=== PATIENT | male | born 1965 | race American Indian/Alaskan Native ===

== ENCOUNTER 2017-01-07 13:02 | Inpatient (IN) | payer MEDICAID ==
[2017-01-07 14:02] LABS: BASO % 0.8 % (0.0-2.0); EOS # 0.1 K/uL (0.0-0.7); HEMATOCRIT 37.1 % (35.0-51.0); LYMPH # 1.3 K/uL (1.0-4.3); LYMPH % 30.3 % (20.0-40.0); MEAN CORPUSCULAR HEMOGLOBIN 26.1 pg (27.0-31.0); MEAN CORPUSCULAR HGB CONC 33.5 g/dL (33.0-37.0); MONO # 0.6 K/uL (0.0-0.8); MONO % 13.3 % (0.0-10.0); NRBC % 0.1 % (0.0-2.0); WHITE BLOOD COUNT 4.4 K/uL (4.8-10.8)
[2017-01-07 14:07] LABS: CHLORIDE 95 mmol/L (98-107); POTASSIUM 3.2 mmol/L (3.6-5.2); SODIUM 136 mmol/L (132-148)
[2017-01-07 14:09] LABS: ALB/GLOB RATIO 1.7 (1.0-2.1); ALKALINE PHOSPHATASE 69 U/L (38-126); AST/SGOT 226 U/L (17-59); BILIRUBIN,TOTAL 0.8 mg/dL (0.2-1.3); CARBON DIOXIDE 28 mmol/L (22-30); GFR AFRICAN-AMERICAN > 60; TOTAL PROTEIN 7.7 g/dL (6.3-8.3)
[2017-01-07 14:10] LABS: ALCOHOL SERUM < 10 mg/dl (0-10); ALT/SGPT 135 U/L (21-72); BLOOD UREA NITROGEN 31 mg/dL (9-20); GLUCOSE,RANDOM 88 mg/dL (75-110)
[2017-01-07 15:23] LABS: RBC URINE < 1 /hpf (0-3); URINE BILIRUBIN NEGATIVE (NEGATIVE); URINE BLOOD NEGATIVE (NEGATIVE); URINE COLOR Amber (YELLOW); URINE GLUCOSE (UA) NORMAL (Normal); URINE KETONE 1+ mg/dL (NEGATIVE); URINE LEUKOCYTE ESTERASE NEG Leu/uL (Negative); URINE PROTEIN 1+ mg/dL (NEGATIVE); WBC URINE 1 /hpf (0-5)
--- NOTE | 2017-01-07 16:25 | C.PDOC ---
History Of Present Illness 51 year old male was brought to the ED by EMS with complaints of hearing voices and suicidal ideation but denies having a plan. Patient notes an extensive psychiatric history and unknown medical compliance. He denies any homicidal ideations or other complaints at this time. Time Seen by Provider: 01/07/17 13:24 Chief Complaint (Nursing): Psychiatric Evaluation History Per: Patient History/Exam Limitations: no limitations Suicide/Self Injury Attempted (Context): None Associated Symptoms: Suicidal Thoughts, Other (hearing voices ). denies: Suicidal Plan Additional History Per: EMS Past Medical History Reviewed: Historical Data, Nursing Documentation, Vital Signs Vital Signs: Last Vital Signs Temp 98.1 F 01/07/17 17:00 Pulse 67 01/07/17 17:00 Resp 18 01/07/17 17:00 BP 117/75 01/07/17 17:00 Pulse Ox 99 01/07/17 17:00 - Medical History PMH: Bipolar Disorder, CAD, CVA, Hepatitis, HTN, Schizophrenia Family History: States: No Known Family Hx - Social History Hx Tobacco Use: Yes Hx Alcohol Use: Yes Hx Substance Use: Yes (heroin 3 days ago, cocaine months ago) - Immunization History Hx Tetanus Toxoid Vaccination: No Hx Influenza Vaccination: Yes Hx Pneumococcal Vaccination: No Review Of Systems Constitutional: Negative for: Fever, Chills, Sweats Cardiovascular: Negative for: Chest Pain, Palpitations Respiratory: Negative for: Cough, Shortness of Breath Gastrointestinal: Negative for: Nausea, Vomiting, Abdominal Pain, Diarrhea Physical Exam - Physical Exam Appears: Non-toxic, No Acute Distress Skin: Warm, Dry, Other (large scar running down left side of face ) Head: Atraumatic Oral Mucosa: Moist Neck: Normal ROM, Supple Chest: Symmetrical, No Deformity Cardiovascular: Rhythm Regular Respiratory: No Rales, No Rhonchi, No Stridor, No Wheezing Gastrointestinal/Abdominal: Soft, No Tenderness, No Distention, No Guarding, No Rebound Extremity: Normal ROM, No Tenderness Neurological/Psych: Oriented x3, Other (flat affect and calm ) ED Course And Treatment - Laboratory Results Result Diagrams: 01/07/17 13:53 01/07/17 13:53 Lab Interpretation: Abnormal (tox + benzo and cocaine) O2 Sat by Pulse Oximetry: 99 Pulse Ox Interpretation: Normal Reevaluation Time: 17:27 Reassessment Condition: Improved - Physician Consult Information Outcome Of Conversation: 1730; d/w Crisis- ok to Psych Disposition Doctor Will See Patient In The: Hospital Counseled Patient/Family Regarding: Studies Performed, Diagnosis - Disposition Disposition: HOSPITALIZED Disposition Time: 17:27 Condition: GOOD - Clinical Impression Clinical Impression: Schizophrenia - Scribe Statement The provider has reviewed the documentation as recorded by the Scribhayder Ashraf All medical record entries made by the Genaibhayder were at my direction and personally dictated by me. I have reviewed the chart and agree that the record accurately reflects my personal performance of the history, physical exam, medical decision making, and the department course for this patient. I have also personally directed, reviewed, and agree with the discharge instructions and disposition.
[2017-01-07] MEDS ORDERED: Potassium Chloride 20 mEq ER Tab PO ONE ×2 (16:51→16:56)
[2017-01-07] MEDS ORDERED: Aluminum Hydroxide/Magnesium Hydroxide Susp (30 mL) PO PRN (19:03)
[2017-01-08 08:14] LABS: CHLORIDE 99 mmol/L (98-107); SODIUM 137 mmol/L (132-148)
[2017-01-08 08:15] LABS: POTASSIUM 3.6 mmol/L (3.6-5.2)
[2017-01-08 08:16] LABS: CHOLESTEROL 147 mg/dL (0-199); GFR AFRICAN-AMERICAN > 60
[2017-01-08 08:17] LABS: ALB/GLOB RATIO 1.3 (1.0-2.1); ALKALINE PHOSPHATASE 59 U/L (38-126); ALT/SGPT 105 U/L (21-72); AST/SGOT 139 U/L (17-59); BILIRUBIN,TOTAL 0.6 mg/dL (0.2-1.3); CALCIUM 8.5 mg/dl (8.6-10.4); CARBON DIOXIDE 29 mmol/L (22-30); GLUCOSE,RANDOM 91 mg/dL (75-110)
[2017-01-08 08:18] LABS: MAGNESIUM 2.3 mg/dL (1.6-2.3); THYROID STIMULATING HORMONE 4.95 mIU/L (0.46-4.68)
[2017-01-08 08:32] LABS: BLOOD UREA NITROGEN 26 mg/dL (9-20)
--- NOTE | 2017-01-08 09:58 | PCM.PSYCH ---
Initial Psychiatric Evaluation - Initial Psychiatric Evaluation Type of Admission: Voluntary Legal Status: Capacity Chief Complaint (in patient's own words): "I had suicidal and homicidal ideation" History of Present Illness and Precipitating Events: Pt is a 51 year old single male. He has one child age 30. He stays with a friend or at a halfway. Patient is on SSI for a long time due to mental illness.Patient was brought to the hospital by EMS. He was visiting his mother's grave in and felt like he wanted to "shoot himself." He also says he was having homicidal ideation and wanted to kill his sister for not taking care of him. Patient has had multiple suicide attempts in the past. He said he tried to jump in front of a train but the train stopped. He also tried to overdose but was brought to hospital. Patient says he has a history of schizoaffective disorder and bipolar. Pt reports he takes risperdone. Patient was most recently at [facility] but not following with a psychiatrist. Patient says he recently relapsed and is smoking $100 of cocaine a day. He also injects about 7 bags of heroin a day but his last use was a few weeks ago. He has been using heroin and cocaine since he was 24 years old. Patient says he has been to detox 4x and last time seven months ago. He has been on Suboxone maintenance therapy in the past as well. He has never been to rehab. Patient takes three Klonopin pills a day (did not know doses) that he gets from the street. He drinks occasionally and smokes 1/2 pack a day. Denies marijuana or other drug use. Patient appears a bit disorganized and internally preoccupied throughout the interview. He reports of hearing voices. He said he heard his mother talking to him. He appears paranoid and delusional but denies any visual hallucinations. Patient complaining that he did not sleep last night due to pain in his foot. Allergies: Haldol (tardive dyskinesia) PMH: 3 CVAs (residual left sided weakness), Hep C, HTN PsychHx: depression, schizoaffective disorder, bipolar FamPsychHx: denies Current Medications: Active Medications Generic Name Dose Route Start Last Admin Trade Name Freq PRN Reason Stop Dose Admin Al Hydrox/Mg Hydrox/Simethicone 30 ml 01/07/17 19:03 Maalox 30 Ml PO TID PRN Indigestion / Heartburn Aripiprazole 5 mg 01/07/17 22:00 01/07/17 21:31 Abilify PO 5 mg HS [facility] Administration Aspirin 81 mg 01/08/17 10:00 Aspirin Chewable PO DAILY [facility] Clonidine HCl 0.1 mg 01/07/17 18:40 Catapres PO Q8 PRN COWS Score More or Equal to 5 Gabapentin 300 mg 01/07/17 19:15 Neurontin PO BID [facility] Hydroxyzine HCl 50 mg 01/07/17 18:30 Atarax PO Q6H PRN Anxiety Ibuprofen 600 mg 01/07/17 18:30 01/07/17 21:31 Motrin Tab PO 600 mg Q6H PRN Administration Pain, moderate (4-7) Lisinopril 10 mg 01/08/17 10:00 Zestril PO DAILY [facility] Loperamide HCl 2 mg 01/07/17 18:40 Imodium PO Q8 PRN Diarrhea Ondansetron HCl 4 mg 01/07/17 19:04 Zofran Tab PO Q8 PRN Nausea/Vomiting Sertraline HCl 50 mg 01/08/17 10:00 Zoloft PO DAILY [facility] Trazodone HCl 100 mg 01/07/17 22:00 Desyrel PO HS PRN Insomnia Past Psychiatric History - Past Psychiatric History Previous Treatment History: Inpatient Pertinent Medical Hx (Current Medical&Sleep Prob, Allergies): Allergies Allergy/AdvReac Type Severity Reaction Status Date / Time haloperidol Allergy Verified 01/07/17 13:13 Aspirin 81 mg PO DAILY 06/13/13 Risperdal 156 mg IM MO 06/13/13 Lisinopril 01/07/17 Review of Systems - Review of Systems All systems: reviewed and no additional remarkable complaints except - Psychiatric Psychiatric: Anxiety, Auditory Hallucinations, Irritability, Mood Swings, Suicidal Ideation Mental Status Examination - Personal Presentation Personal Presentation: Looks older than stated age - Affect Affect: Constricted - Motor Activity Motor Activity: Psychomotor Retardation - Reliability in Providing Information Reliability in Providing Information: Poor, due to alteration in thoughts, Poor , due to altered mood - Speech Speech: Disorganized - Mood Mood: Depressed, Anxious - Formal Thought Process Formal Thought Process: Hallucinations, Delusions, Paranoia, Loosening of associations - Hallucinations/Delusions Hallucinations: Auditory Delusions: Persecution - Obsessions/Compulsions Obsessions: No Compulsions: No - Cognitive Functions Orientation: Person, Place, Situation, Time Sensorium: Alert Attention/Concentration: Attentive Abstract Thinking: Belcher Estimate of Intelligence: Below average Judgement: Imparied, as evidence by: Poor judgement, Imparied, as evidence by: Lack of insight into illness - Risk Risk: Suicidal, Diminished functioning - Strength & Assets Inventory Strength & Assets Inventory: Cooperative - Limitations Limitations: Living alone DSM 5 DX - DSM 5 DSM 5 Diagnosis: Schizoaffective disorder bipolar type Cocaine use disorder severe Sedative/hypnotic use disorder severe Sedative/hypnotic withdrawal Opiate use disorder severe in remission - Recommended/Plan of Treatment Treatment Recommendations and Plan of Treatment: Schizoaffective disorder bipolar type CBT Psychoeducation Supportive therapy, group therapy, individual therapy Zoloft 50 mg g by mouth daily Neurontin 300 mg by mouth 2 times a day Abilify 5 mg by mouth daily at bedtime Trazodone 100 mg by mouth daily at bedtime Sedative/hypnotic use disorder severe CBT Psychoeducation Supportive therapy, individual therapy Use [place] for abstinence Sedative/hypnotic withdrawal uncomplicated CBT Psychoeducation Supportive therapy, individual therapy Ativan 2 mg every 8 hrs when necessary Cocaine use disorder severe CBT Psychoeducation Supportive therapy, individual therapy Use [place] for abstinence Opioid use disorder in remission CBT Psychoeducation Supportive therapy, individual therapy Use [place] for abstinence HTN Continue prescribed medications (Lisinopril) Monitor signs symptoms H/O Stroke Continue prescribed medications (Miquel) Monitor signs symptoms - Smoking Cessation Smoking Cessation Initiated: No
--- NOTE | 2017-01-09 09:48 | CP.PCM.CON ---
Past Patient History - Infectious Disease Hx of Infectious Diseases: None - Past Social History Smoking Status: Light Smoker < 10 Cigarettes Daily - CARDIAC Hx Heart Attack: Yes (1984) Hx Hypertension: Yes - PULMONARY Hx Tuberculosis: Yes - NEUROLOGICAL Hx Seizures: No Other/Comment: hx of 3 strokes - R side weakness - HEMATOLOGICAL/ONCOLOGICAL Hx Hepatitis C: Yes Hx Human Immunodeficiency Virus (HIV): No - GENITOURINARY/GYNECOLOGICAL Hx Sexually Transmitted Disorders: No - PSYCHIATRIC Hx Schizophrenia: Yes (risperdone injection) Hx Substance Use: Yes (cocaine/benzos) - SURGICAL HISTORY Other/Comment: hematoma right kidney 2000 - ANESTHESIA Hx Anesthesia: Yes Hx Anesthesia Reactions: No Meds Allergies/Adverse Reactions: Allergies Allergy/AdvReac Type Severity Reaction Status Date / Time haloperidol Allergy Verified 01/07/17 13:13 - Medications Medications: Current Medications Al Hydrox/Mg Hydrox/Simethicone (Maalox 30 Ml) 30 ml PO TID PRN PRN Reason: Indigestion / Heartburn Aripiprazole (Abilify) 5 mg PO HS [facility] Last Admin: 01/08/17 21:19 Dose: 5 mg Aspirin (Aspirin Chewable) 81 mg PO DAILY [facility] Last Admin: 01/08/17 10:18 Dose: 81 mg Clonidine HCl (Catapres) 0.1 mg PO Q8 PRN PRN Reason: COWS Score More or Equal to 5 Gabapentin (Neurontin) 300 mg PO BID [facility] Last Admin: 01/08/17 18:00 Dose: 300 mg Hydroxyzine HCl (Atarax) 50 mg PO Q6H PRN PRN Reason: Anxiety Ibuprofen (Motrin Tab) 600 mg PO Q6H PRN PRN Reason: Pain, moderate (4-7) Last Admin: 01/07/17 21:31 Dose: 600 mg Lisinopril (Zestril) 10 mg PO DAILY [facility] Last Admin: 01/08/17 10:17 Dose: 10 mg Loperamide HCl (Imodium) 2 mg PO Q8 PRN PRN Reason: Diarrhea Ondansetron HCl (Zofran Tab) 4 mg PO Q8 PRN PRN Reason: Nausea/Vomiting Sertraline HCl (Zoloft) 50 mg PO DAILY [facility] Last Admin: 01/08/17 10:18 Dose: 50 mg Trazodone HCl (Desyrel) 100 mg PO HS PRN PRN Reason: Insomnia Results - Vital Signs Recent Vital Signs: Last Vital Signs Temp 98.3 F 01/09/17 07:47 Pulse 50 L 01/09/17 07:47 Resp 16 01/09/17 07:47 BP 131/80 01/09/17 07:47 Pulse Ox 99 01/07/17 17:27 - Labs Result Diagrams: 01/07/17 13:53 01/08/17 07:29
--- NOTE | 2017-01-09 10:40 | PCM.PYCHPN ---
Psychiatric Progress Note - Psychiatric Progress Note Patient seen today, length of contact: 17 min Patient Chief Complaint: "I had suicidal and homicidal ideation" Problems Identified/Issues Discussed: Patient seen and evaluated, chart reviewed and discussed with the nurse. Patient remained disorganized and internally preoccupied. Patient remained isolated, confined and withdrawn. He still reports of hearing voices. Patient still appears paranoid and delusional. He reports depressed mood and feelings of hopelessness and helplessness. He reports withdrawal symptoms including cramps, headaches and anxiety. But remained isolated and withdrawn, denies any suicidal ideation or homicidal ideation. Supportive therapy and psychoeducation were given. Medication Change: Yes (Ativan when necessary) Medical Record Reviewed: Yes Mental Status Examination - Cognitive Function Orientation: Person, Place, Situation, Time Memory: Intact Attention: WNL Concentration: Poor Association: WNL Fund of Knowledge: Poor - Mood Mood: Depressed, Anxious - Affect Affect: Constricted - Speech Speech: Soft - Formal Thought Process Formal Thought Process: Hallucinations, Delusions, Paranoia, Loosening of associations - Suicidal Ideation Suicidal Ideation: No - Homicidal Ideation Homicidal Ideation: No Goal/Treatment Plan - Goal/Treatment Plan Need for Continued Stay: Discharge may exacerbated symptoms, Severe functional impairment Progress Toward Problem(s) and Goals/Treatment Plan: Schizoaffective disorder bipolar type CBT Psychoeducation Supportive therapy, group therapy, individual therapy Zoloft 50 mg g by mouth daily Neurontin 300 mg by mouth 2 times a day Abilify 5 mg by mouth daily at bedtime Trazodone 100 mg by mouth daily at bedtime Sedative/hypnotic use disorder severe CBT Psychoeducation Supportive therapy, individual therapy Use [place] for abstinence Sedative/hypnotic withdrawal uncomplicated CBT Psychoeducation Supportive therapy, individual therapy Ativan 2 mg every 8 hrs when necessary Cocaine use disorder severe CBT Psychoeducation Supportive therapy, individual therapy Use [place] for abstinence Opioid use disorder in remission CBT Psychoeducation Supportive therapy, individual therapy Use [place] for abstinence HTN Continue prescribed medications (Lisinopril) Monitor signs symptoms H/O Stroke Continue prescribed medications (Miquel) Monitor signs symptoms - Smoking Cessation Smoking Cessation Initiated: No
--- NOTE | 2017-01-09 12:29 | CP.PCM.CON ---
History of Present Illness - History of Present Illness History of Present Illness: Podiatry consult note- Dr. Heard 51 year old male with PMHx of Bipolar Disorder, CAD, CVA, Hepatitis, HTN, Schizophrenia, seen by podiatry for nail care. Patient denies any additional lower extremity complaints, states that his nails sometimes bother him and that a couple of them have fallen off. Nails are slightly elongated and thickened, no other LE pathology noted. Past Patient History - Infectious Disease Hx of Infectious Diseases: None - Past Social History Smoking Status: Light Smoker < 10 Cigarettes Daily - CARDIAC Hx Heart Attack: Yes (1984) Hx Hypertension: Yes - PULMONARY Hx Tuberculosis: Yes - NEUROLOGICAL Hx Seizures: No Other/Comment: hx of 3 strokes - R side weakness - HEMATOLOGICAL/ONCOLOGICAL Hx Hepatitis C: Yes Hx Human Immunodeficiency Virus (HIV): No - GENITOURINARY/GYNECOLOGICAL Hx Sexually Transmitted Disorders: No - PSYCHIATRIC Hx Schizophrenia: Yes (risperdone injection) Hx Substance Use: Yes (cocaine/benzos) - SURGICAL HISTORY Other/Comment: hematoma right kidney 2000 - ANESTHESIA Hx Anesthesia: Yes Hx Anesthesia Reactions: No Meds Allergies/Adverse Reactions: Allergies Allergy/AdvReac Type Severity Reaction Status Date / Time haloperidol Allergy Verified 01/07/17 13:13 - Medications Medications: Current Medications Al Hydrox/Mg Hydrox/Simethicone (Maalox 30 Ml) 30 ml PO TID PRN PRN Reason: Indigestion / Heartburn Aripiprazole (Abilify) 5 mg PO HS [facility] Last Admin: 01/08/17 21:19 Dose: 5 mg Aspirin (Aspirin Chewable) 81 mg PO DAILY [facility] Last Admin: 01/09/17 10:19 Dose: 81 mg Clonidine HCl (Catapres) 0.1 mg PO Q8 PRN PRN Reason: COWS Score More or Equal to 5 Gabapentin (Neurontin) 300 mg PO BID [facility] Last Admin: 01/09/17 10:20 Dose: 300 mg Hydroxyzine HCl (Atarax) 50 mg PO Q6H PRN PRN Reason: Anxiety Ibuprofen (Motrin Tab) 600 mg PO Q6H PRN PRN Reason: Pain, moderate (4-7) Last Admin: 01/07/17 21:31 Dose: 600 mg Lisinopril (Zestril) 10 mg PO DAILY [facility] Last Admin: 01/09/17 10:19 Dose: 10 mg Loperamide HCl (Imodium) 2 mg PO Q8 PRN PRN Reason: Diarrhea Ondansetron HCl (Zofran Tab) 4 mg PO Q8 PRN PRN Reason: Nausea/Vomiting Sertraline HCl (Zoloft) 50 mg PO DAILY [facility] Last Admin: 01/09/17 10:19 Dose: 50 mg Trazodone HCl (Desyrel) 100 mg PO HS PRN PRN Reason: Insomnia Physical Exam - Constitutional Appears: Well, Non-toxic, No Acute Distress - Neurological Exam Neurological exam: Oriented x3 - Psychiatric Exam Psychiatric exam: Normal Affect, Normal Mood - Additional Findings Additional findings: DERMATOLOGIC: Skin is intact, no open lesions or rashes, there is diffuse xerosis b/l. Nails are slightly thickened and elongated with darkened discoloration. Left hallux nail and right fifth digit nail are absent. There is a hyperkeratotic rim of the proximal nail fold of the right fifth digit. VASCULAR: DP/PT pulses 2/4, [employer]<3 seconds, skin temperature is normal NEUROLOGIC: Gross sensation intact, motor function intact ORTHOPEDIC: Negative pain on palpation to the extremities. There is contracture of the lesser digits bilaterally, rigid. Results - Vital Signs Recent Vital Signs: Last Vital Signs Temp 98.3 F 01/09/17 07:47 Pulse 50 L 01/09/17 07:47 Resp 16 01/09/17 07:47 BP 131/80 01/09/17 07:47 Pulse Ox 99 01/07/17 17:27 - Labs Result Diagrams: 01/07/17 13:53 01/08/17 07:29 Assessment & Plan - Assessment and Plan (Free Text) Assessment: 51 year old male with onychomycosis and xerosis. Plan: Patient seen and evaluated with attending, Dr. Heard. Patients nails sharpy debrided x8. Order placed for LacHydrin lotion to be applied to feet daily Thank you for this consultation, please reconsult as needed
--- NOTE | 2017-01-10 14:48 | PCM.PYCHPN ---
Psychiatric Progress Note - Psychiatric Progress Note Patient seen today, length of contact: 17 min Patient Chief Complaint: "I had suicidal and homicidal ideations" Problems Identified/Issues Discussed: Patient seen and evaluated, chart reviewed and discussed with the nurse. As per the staff, patient remained isolated, confined and withdrawn. He still appears paranoid and delusional. He reports depressed mood and feelings of hopelessness and helplessness. He reports withdrawal symptoms including cramps, headaches and anxiety. Spoke with Dr. Arambula, as per him pt stops taking medications and relapses on drugs. He needs inpatient rehab. Supportive therapy and psychoeducation were given. Medication Change: Yes Medical Record Reviewed: Yes Mental Status Examination - Cognitive Function Orientation: Person, Place, Situation, Time Memory: Intact Attention: Poor Concentration: Poor Association: Loose Fund of Knowledge: Poor - Mood Mood: Depressed, Anxious - Affect Affect: Constricted - Speech Speech: Soft - Formal Thought Process Formal Thought Process: Hallucinations, Delusions, Paranoia, Loosening of associations - Suicidal Ideation Suicidal Ideation: No - Homicidal Ideation Homicidal Ideation: No Goal/Treatment Plan - Goal/Treatment Plan Need for Continued Stay: Discharge may exacerbated symptoms, Severe functional impairment Progress Toward Problem(s) and Goals/Treatment Plan: Schizoaffective disorder bipolar type CBT Psychoeducation Supportive therapy, group therapy, individual therapy Zoloft 50 mg g by mouth daily Neurontin 300 mg by mouth 2 times a day Abilify 5 mg by mouth daily at bedtime Trazodone 100 mg by mouth daily at bedtime Sedative/hypnotic use disorder severe CBT Psychoeducation Supportive therapy, individual therapy Use [place] for abstinence Sedative/hypnotic withdrawal uncomplicated CBT Psychoeducation Supportive therapy, individual therapy Ativan 2 mg every 8 hrs when necessary Cocaine use disorder severe CBT Psychoeducation Supportive therapy, individual therapy Use [place] for abstinence Opioid use disorder in remission CBT Psychoeducation Supportive therapy, individual therapy Use [place] for abstinence HTN Continue prescribed medications (Lisinopril) Monitor signs symptoms H/O Stroke Continue prescribed medications (Miquel) Monitor signs symptoms - Smoking Cessation Smoking Cessation Initiated: No
--- NOTE | 2017-01-11 22:02 | PCM.PYCHPN ---
Psychiatric Progress Note - Psychiatric Progress Note Patient seen today, length of contact: 16 min Patient Chief Complaint: "I am hearing voices' Problems Identified/Issues Discussed: Patient seen, chart reviewed, case discussed with nurse Patient reports that he is still hearing voices that are telling him to hurt himself. He says that the voices are always there and he is unable to sleep. When asked why, he says that no one cares about him. He says he is anxious, paranoid and appears disorganized and internally preoccupied. He says that he is paranoid about his family. He is upset that they don't take care of him and that they abandoned him. He has not had contact with his family. He reports that he thinks about them a lot. He denies SI and HI at the moment. He denies any side effects from medications. Patient is calm and cooperative. Supportive therapy and psychoeducation were given.~ Medication Change: Yes (start risperdal) Medical Record Reviewed: Yes Mental Status Examination - Cognitive Function Orientation: Person, Place, Situation, Time Memory: Intact Attention: Poor Concentration: Poor Association: Loose Fund of Knowledge: Poor - Mood Mood: Depressed, Anxious - Affect Affect: Constricted - Speech Speech: Soft - Formal Thought Process Formal Thought Process: Hallucinations, Delusions, Paranoia, Loosening of associations - Suicidal Ideation Suicidal Ideation: No - Homicidal Ideation Homicidal Ideation: No Goal/Treatment Plan - Goal/Treatment Plan Need for Continued Stay: Discharge may exacerbated symptoms, Severe functional impairment Progress Toward Problem(s) and Goals/Treatment Plan: Schizoaffective disorder bipolar type CBT Psychoeducation Supportive therapy, group therapy, individual therapy Zoloft 50 mg g by mouth daily Neurontin 300 mg by mouth 2 times a day Reduce Abilify to 5 mg by mouth daily at bedtime Trazodone 100 mg by mouth daily at bedtime Start Risperdal 2 mg PO BID Sedative/hypnotic use disorder severe CBT Psychoeducation Supportive therapy, individual therapy Use [place] for abstinence Sedative/hypnotic withdrawal uncomplicated CBT Psychoeducation Supportive therapy, individual therapy Ativan 2 mg every 8 hrs when necessary Cocaine use disorder severe CBT Psychoeducation Supportive therapy, individual therapy Use [place] for abstinence Opioid use disorder in remission CBT Psychoeducation Supportive therapy, individual therapy Use [place] for abstinence HTN Continue prescribed medications (Lisinopril) Monitor signs symptoms H/O Stroke Continue prescribed medications (Miquel) Monitor signs symptoms - Smoking Cessation Smoking Cessation Initiated: No
--- NOTE | 2017-01-12 08:45 | PCM.PYCHPN ---
Psychiatric Progress Note - Psychiatric Progress Note Patient seen today, length of contact: 16 min Patient Chief Complaint: "I am hearing voices' Problems Identified/Issues Discussed: Patient seen, chart reviewed, case discussed with nurse. As per the staff, pt appeared a bit more organized but remained internally preoccupied. He reports improvement in the voices. He still appears anxious, paranoid and delusional. He is upset about his family that they don't take care of him and that they abandoned him. He denies SI and HI at the moment. He denies any side effects from medications. Supportive therapy and psychoeducation were given. Medication Change: Yes (Increase risperdal) Medical Record Reviewed: Yes Mental Status Examination - Cognitive Function Orientation: Person, Place, Situation, Time Memory: Intact Attention: WNL Concentration: Poor Association: Loose Fund of Knowledge: Poor - Mood Mood: Anxious - Affect Affect: Constricted - Speech Speech: Soft - Formal Thought Process Formal Thought Process: Hallucinations, Delusions, Paranoia, Loosening of associations - Suicidal Ideation Suicidal Ideation: No - Homicidal Ideation Homicidal Ideation: No Goal/Treatment Plan - Goal/Treatment Plan Need for Continued Stay: Discharge may exacerbated symptoms, Severe functional impairment Progress Toward Problem(s) and Goals/Treatment Plan: Schizoaffective disorder bipolar type CBT Psychoeducation Supportive therapy, group therapy, individual therapy Zoloft 50 mg g by mouth daily Neurontin 300 mg by mouth 2 times a day D/C Abilify to 5 mg by mouth daily at bedtime Trazodone 100 mg by mouth daily at bedtime Risperdal 2 mg PO BID Sedative/hypnotic use disorder severe CBT Psychoeducation Supportive therapy, individual therapy Use SD for abstinence Sedative/hypnotic withdrawal uncomplicated CBT Psychoeducation Supportive therapy, individual therapy Ativan 2 mg every 8 hrs when necessary Cocaine use disorder severe CBT Psychoeducation Supportive therapy, individual therapy Use SD for abstinence Opioid use disorder in remission CBT Psychoeducation Supportive therapy, individual therapy Use SD for abstinence HTN Continue prescribed medications (Lisinopril) Monitor signs symptoms H/O Stroke Continue prescribed medications (Miquel) Monitor signs symptoms - Smoking Cessation Smoking Cessation Initiated: No
[2017-01-14 08:39] VITALS: O2SAT 100
--- NOTE | 2017-01-14 22:09 | PCM.PYCHPN ---
Psychiatric Progress Note - Psychiatric Progress Note Patient seen today, length of contact: 20 min Patient Chief Complaint: In am still hearing voices that tell me to kill myself and they will kill me. Problems Identified/Issues Discussed: I am tired of living but i am afraid to . Pros and cons of life and sobriety vs suicide Medical Problems: nothing acute Diagnostic Results: reviewed DSM 5 Symptoms Update: depressed anhedonic anergy avolition Medication Change: No Medical Record Reviewed: Yes Mental Status Examination - Cognitive Function Orientation: Place, Situation, Time Memory: Intact Attention: WNL Concentration: Poor Association: WNL Fund of Knowledge: Poor - Mood Mood: Depressed, Anxious - Affect Affect: Constricted - Speech Speech: Soft - Formal Thought Process Formal Thought Process: Hallucinations, Delusions, Paranoia, Loosening of associations - Suicidal Ideation Suicidal Ideation: No - Homicidal Ideation Homicidal Ideation: No Goal/Treatment Plan - Goal/Treatment Plan Need for Continued Stay: Discharge may exacerbated symptoms, Failed transitioning, Severe functional impairment Progress Toward Problem(s) and Goals/Treatment Plan: schizoaffective disorder risperdal sedative hypnotic usecdisorder CBT SD milieu supportive psychotherappy - Smoking Cessation Smoking Cessation Initiated: No
--- NOTE | 2017-01-14 22:19 | PCM.PYCHPN ---
Psychiatric Progress Note - Psychiatric Progress Note Patient seen today, length of contact: 15 min Patient Chief Complaint: i don't want to live like this but i am afraid to Problems Identified/Issues Discussed: . Pros and cons of life and sobriety vs suicide effect of suicide on others Medical Problems: nothing acute Diagnostic Results: reviewed Medication Change: No Medical Record Reviewed: Yes Mental Status Examination - Cognitive Function Orientation: Situation, Time Memory: Intact Attention: WNL Concentration: Poor Association: WNL Fund of Knowledge: WNL - Mood Mood: Depressed, Anxious - Affect Affect: Constricted - Speech Speech: Appropriate, Soft - Formal Thought Process Formal Thought Process: Hallucinations, Delusions, Paranoia, Loosening of associations - Suicidal Ideation Suicidal Ideation: No - Homicidal Ideation Homicidal Ideation: No Goal/Treatment Plan - Goal/Treatment Plan Need for Continued Stay: Discharge may exacerbated symptoms, Failed transitioning, Severe functional impairment Progress Toward Problem(s) and Goals/Treatment Plan: schizoaffective disorder risperdal group rectreational therapy sedative hypnotic use disorder CBT IN milieu supportive psychotherappy - Smoking Cessation Smoking Cessation Initiated: No
[2017-01-15 08:22] VITALS: BP 137/85; PULSE 66; RESP 18; TEMP 98.1
--- NOTE | 2017-01-15 09:43 | PCM.PYCHDC ---
Mental Status Examination - Mental Status Examination Orientation: Person, Place, Situation, Time Memory: Intact Mood: Neutral Affect: Constricted Speech: Soft Attention: WNL Concentration: WNL Association: WNL Fund of Knowledge: WNL Formal Thought Process: No Impairment Description of patient's judgement and insight: good, fair Psychotic Thoughts and Behaviors: denies any AVH Suicidal Ideation: No Current Homicidal Ideation?: No Discharge Summary - Discharge Note Reason for Hospitalization: Pt is a 51 year old single male. He has one child age 30. He stays with a friend or at a penitentiary. Patient is on SSI for a long time due to mental illness.Patient was brought to the hospital by EMS. He was visiting his mother's grave in and felt like he wanted to "shoot himself." He also says he was having homicidal ideation and wanted to kill his sister for not taking care of him. Patient has had multiple suicide attempts in the past. He said he tried to jump in front of a train but the train stopped. He also tried to overdose but was brought to hospital. Patient says he has a history of schizoaffective disorder and bipolar. Pt reports he takes risperdone. Patient was most recently at [facility] but not following with a psychiatrist. Patient says he recently relapsed and is smoking $100 of cocaine a day. He also injects about 7 bags of heroin a day but his last use was a few weeks ago. He has been using heroin and cocaine since he was 24 years old. Patient says he has been to detox 4x and last time seven months ago. He has been on Suboxone maintenance therapy in the past as well. He has never been to rehab. Patient takes three Klonopin pills a day (did not know doses) that he gets from the street. He drinks occasionally and smokes 1/2 pack a day. Denies marijuana or other drug use. Patient appears a bit disorganized and internally preoccupied throughout the interview. He reports of hearing voices. He said he heard his mother talking to him. He appears paranoid and delusional but denies any visual hallucinations. Patient complaining that he did not sleep last night due to pain in his foot. Consultations:: List each consultation separately and include: 1. Reason for request. 2. Findings. 3. Follow-up Summary of Hospital Course include:: 1. Description of specific treatment plan utilized for patients during their course of treatmen. 2. Summarize the time- course for resolution of acute symptoms and/or regressed behaviors. 3. Describe issues identified and worked on during hospitalization. 4. Describe medication utilized. 5. Describe medical problems identified and treated. 6. Reassessment of suicide risk Summary of Hospital Course: During the course of his stay, patient (pt) started progressively improving and he no longer remained irritable, depressed, suicidal and paranipd. His mood and paranoia were improved and he started attending groups and meetings and started socializing. Patient denied any feelings of hopelessness, helplessness, and worthlessness, denied any problem with the sleep or appetite, denied suicidal ideation or homicidal ideation. Pt denied any auditory or visual hallucinations. Some changes were made in his current medications and patient was discharged on following medications. He tolerated these medications very well and denied any side effects. - Final Diagnosis (DSM 5) Condition upon Discharge: GOOD DSM 5: Schizoaffective disorder bipolar type Sedative/hypnotic use disorder severe Sedative/hypnotic withdrawal uncomplicated Cocaine use disorder severe Opioid use disorder in remission Disposition: HOME/ ROUTINE Follow-up Treatment Plan: Education: Pt was educated and counseled about the risks and benefits of taking and not taking medications. Pt was educated and counseled about the risks of drinking and abusing drugs. Pt was educated and counseled to go to the ER or call 911 if pt develop suicidal ideation or homicidal ideation, worsening of symptoms or severe side effects of the meds. Prescriptions/Medication Reconciliation: Aspirin [Aspirin Chewable] 81 mg PO DAILY #30 Lisinopril [Zestril] 10 mg PO DAILY #30 tab risperiDONE [RisperDAL Tab] 2 mg PO BID #60 tab Sertraline [Zoloft] 50 mg PO DAILY #30 tab traZODone [Desyrel] 100 mg PO HS PRN #30 tab PRN Reason: Insomnia - Smoking Cessation Smoking Cessation Medication prescribed: No - Antipsychotic Medications Pt discharged on 2 or more routine antipsychotic medications: No
== END 2017-01-15 11:20 | disposition home or self-care (01) | DRG 430 ==
LOC: C.ER 13:02 → C.5E 17:26
PROVIDERS: ADMIT Psychiatry & Neurology Psychiatry; ATTEND Psychiatry & Neurology Psychiatry
PROC: 0HBRXZZ Excision of Toe Nail, External Approach (ICD-10-PCS; principal; 2017-01-09)
PROC: 0HBRXZZ Excision of Toe Nail, External Approach (ICD-10-PCS; 2017-01-09)
PROC: 0HBRXZZ Excision of Toe Nail, External Approach (ICD-10-PCS; 2017-01-09)
PROC: 0HBRXZZ Excision of Toe Nail, External Approach (ICD-10-PCS; 2017-01-09)
PROC: 0HBRXZZ Excision of Toe Nail, External Approach (ICD-10-PCS; 2017-01-09)
PROC: 0HBRXZZ Excision of Toe Nail, External Approach (ICD-10-PCS; 2017-01-09)
PROC: 0HBRXZZ Excision of Toe Nail, External Approach (ICD-10-PCS; 2017-01-09)
PROC: 0HBRXZZ Excision of Toe Nail, External Approach (ICD-10-PCS; 2017-01-09)
DX: F25.0 Schizoaffective disorder, bipolar type (principal); R45.851 Suicidal ideations; I69.351 Hemiplegia and hemiparesis following cerebral infarction affecting right dominant side; I10 Essential (primary) hypertension; F17.210 Nicotine dependence, cigarettes, uncomplicated; B35.1 Tinea unguium; F13.239 Sedative, hypnotic or anxiolytic dependence with withdrawal, unspecified; F11.90 Opioid use, unspecified, uncomplicated; F14.90 Cocaine use, unspecified, uncomplicated; R45.850 Homicidal ideations; I25.10 Atherosclerotic heart disease of native coronary artery without angina pectoris; I25.2 Old myocardial infarction; F41.9 Anxiety disorder, unspecified; Z79.899 Other long term (current) drug therapy; Z86.11 Personal history of tuberculosis; Z86.73 Personal history of transient ischemic attack (TIA), and cerebral infarction without residual deficits